=== PATIENT | male | born 1980 | race Caucasian/White ===

== ENCOUNTER 2016-09-02 16:50 | Emergency (ER) | payer MEDICAID | END 2016-09-02 18:37 | disposition left against medical advice (07) | LOC: EMS 16:52 | DX: H92.09 Otalgia, unspecified ear (principal); Z53.21 Procedure and treatment not carried out due to patient leaving prior to being seen by health care provider ==

== ENCOUNTER 2017-09-25 18:44 | Emergency (ER) | payer MEDICAID ==
[~2017-09-25] VITALS: Ht 182.9 cm; Wt 113.6 kg
[2017-09-25] MEDS ORDERED: CLINDAMYCIN HCL 150 MG CAPSULE PO ONE (19:15)
[2017-09-25] MEDS ORDERED: PERTUSS(ACELL),DIPH,TET VAC/PF 0.5 ML VIAL IM ONE (19:15)
[2017-09-25] MEDS ORDERED: SULFAMETHOX/TRIMETH DS 800-160 MG/TABLET PO ONE (19:15)
[2017-09-25 20:00] VITALS: BP 137/78
== END 2017-09-25 20:05 | disposition home or self-care (01) ==
LOC: EMS 18:45
DX: S61.251A Open bite of left index finger without damage to nail, initial encounter (principal); W64.XXXA Exposure to other animate mechanical forces, initial encounter; Y93.89 Activity, other specified; Y92.89 Other specified places as the place of occurrence of the external cause; Y99.8 Other external cause status
CPT/HCPCS: 90471; 90715; 99283

== ENCOUNTER 2020-04-07 16:33 | Emergency (ER) | payer SELFPAY ==
[~2020-04-07] VITALS: Ht 175.3 cm; Wt 90.9 kg
[2020-04-07] MEDS ORDERED: CEPH125S23 PO (16:39)
[2020-04-07] MEDS ORDERED: DOXY-354 PO (16:39)
[2020-04-07] MEDS ORDERED: CefTRIAXone 1 GM/DEXTROSE 50 ML IV ONE (17:00)
[2020-04-07] MEDS ORDERED: SODIUM CHLORIDE 0.9% 1,000 ML IV ONE (17:00)
[2020-04-07] MEDS ORDERED: CEPH-582 PO (17:02)
[2020-04-07 17:42] LABS: COVID AG,FIA SOURCE NASOPHARYNGEAL
[2020-04-07 17:46] LABS: BASOPHILS % (AUTO) 0.6 % (0.0-2.0); EOSINOPHILS % (AUTO) 1.4 % (1.0-6.0); HEMATOCRIT 43.6 % (41-53); HEMOGLOBIN 14.3 g/dL (13.5-17.5); LYMPHOCYTES # (AUTO) 1.6 K/uL (1.0-4.8); LYMPHOCYTES % (AUTO) 13.4 % (22.0-44.0); MEAN CORPUSCULAR HGB CONC 32.7 G/dL (31.0-37.0); MEAN CORPUSCULAR VOLUME 82 fL (80-100); MONOCYTES # (AUTO) 0.8 K/uL (0.1-1.0); MONOCYTES % (AUTO) 7.1 % (2.0-9.0); NEUTROPHILS % (AUTO) 77.5 % (40.0-70.0); PLATELET COUNT (AUTO) 253 K/uL (150-450); RED BLOOD CELL COUNT(AUTO) 5.29 MIL/uL (4.50-5.90); RED CELL DISTRIBUTION WIDTH 13.9 % (11.5-14.5)
[2020-04-07 17:50] VITALS: BP 137/81
[2020-04-07 18:11] LABS: ANION GAP 10 mmol/L (8-16); CALCIUM, TOTAL 8.9 mg/dL (8.8-10.5); CARBON DIOXIDE 27 mmol/L (22-29); CHLORIDE 103 mmol/L (98-107); CREATININE 1.03 mg/dL (0.60-1.30); GLOMERULAR FILTR. RATE CALC > 60 mL/min (>60); GLUCOSE,RANDOM 105 mg/dL (70-110); POTASSIUM 3.3 mmol/L (3.5-5.1); SODIUM SERUM 140 mmol/L (136-145); UREA NITROGEN, BLOOD 13 mg/dL (7-18)
[2020-04-07 18:17] LABS: LACTIC ACID 1.6 mmol/L (0.4-2.0)
[2020-04-07 18:24] LABS: ALANINE AMINOTRANSFERASE 22 U/L (12-78); ALBUMIN 3.5 g/dL (3.4-5.0); ALKALINE PHOSPHATASE 78 U/L (46-116); ASPARTATE AMINOTRANSFERASE 13 U/L (15-37); BILIRUBIN,TOTAL 0.4 mg/dL (0.1-1.0); TOTAL PROTEIN, SERUM 6.9 g/dL (6.4-8.2)
== END 2020-04-07 18:44 | disposition home or self-care (01) ==
LOC: EMS 16:33
DX: L03.114 Cellulitis of left upper limb (principal); M79.602 Pain in left arm; R07.9 Chest pain, unspecified; E78.00 Pure hypercholesterolemia, unspecified; Z20.828 Contact with and (suspected) exposure to other viral communicable diseases
CPT/HCPCS: 36415; 71045; 73080; 80053; 83605; 84484; 85025; 87040; 87426; 93005; 96365; 99285; J0696; J7030

== ENCOUNTER 2020-08-20 08:22 | Emergency (ER) | payer SELFPAY ==
[~2020-08-20] VITALS: Ht 180.3 cm; Wt 90.9 kg
[2020-08-20] MEDS ORDERED: ACETAMINOPHEN 325 MG TABLET PO ONE (09:00)
[2020-08-20 09:26] LABS: COVID AG,FIA SOURCE NASOPHARYNGEAL
[2020-08-20 10:00] LABS: INFLUENZA TYPE A NEGATIVE FOR TYPE A (NEGATIVE); INFLUENZA TYPE B NEGATIVE FOR TYPE B (NEGATIVE)
[2020-08-20 10:01] LABS: BASOPHILS % (AUTO) 0.7 % (0.0-2.0); EOSINOPHILS % (AUTO) 2.1 % (1.0-6.0); HEMATOCRIT 44.8 % (41-53); HEMOGLOBIN 14.8 g/dL (13.5-17.5); LYMPHOCYTES % (AUTO) 11.2 % (22.0-44.0); MEAN CORPUSCULAR HEMOGLOBIN 27.4 pg (26.0-34.0); MEAN CORPUSCULAR VOLUME 83 fL (80-100); MONOCYTES # (AUTO) 0.8 K/uL (0.1-1.0); MONOCYTES % (AUTO) 8.2 % (2.0-9.0); NEUTROPHILS # (AUTO) 7.3 K/uL (1.8-7.7); NEUTROPHILS % (AUTO) 77.8 % (40.0-70.0); PLATELET COUNT (AUTO) 239 K/uL (150-450); RED BLOOD CELL COUNT(AUTO) 5.39 MIL/uL (4.50-5.90)
[2020-08-20] MEDS ORDERED: AMOXICILLIN TRIHYDRATE 250 MG/5 ML SUSPENSION ORAL.SYG PO ONE (10:30)
[2020-08-20] MEDS ORDERED: AMOXICILLIN TRIHYDRATE 250 MG CAPSULE PO ONE (10:30)
[2020-08-20 11:00] VITALS: BP 124/76
== END 2020-08-20 11:36 | disposition home or self-care (01) ==
LOC: EMS 08:22
DX: J02.0 Streptococcal pharyngitis (principal); Z20.822 Contact with and (suspected) exposure to COVID-19; E78.00 Pure hypercholesterolemia, unspecified
CPT/HCPCS: 36415; 71045; 85025; 87426; 87430; 87804; 99284; U0003